=== PATIENT | female | born 1960 | race African-American/Black ===

== ENCOUNTER 2016-03-04 03:01 | Emergency (ER) | payer OTHER ==
[~2016-03-04] VITALS: Ht 163.8 cm; Wt 104.3 kg
[~2016-03-04 03:01] MED LIST: GUAIFENESIN-COD10 ML PO; MEDROL4 M2 PO
--- NOTE | 2016-03-04 03:40 | ED NECK/BACK PAIN COMPLAINT ---
History of Present Illness General Chief Complaint: Low Back Pain/Injury Stated Complaint: S/P FALL TUESDAY AT WORK NOW C/O BACK PAIN Source: patient Exam Limitations: no limitations Vital Signs & Intake/Output Vital Signs & Intake/Output Vital Signs Date Time Temp Pulse Resp B/P Pulse O2 O2 Flow FiO2 Ox Delivery Rate 03/04 626 97.2 75 18 146/82 98 Room Air 03/04 0406 97.0 72 20 166/85 97 Room Air 03/04 0348 Room Air Allergies Coded Allergies: Sulfa (Sulfonamide Antibiotics) (ANAPHYLAXIS 03/04/16) Reconcile Medications Amlodipine Besylate 5 MG TABLET 1 TAB PO DAILY HTN (Reported) Ibuprofen 600 MG TABLET 1 TAB PO TID PRN pain with food Metformin HCl 500 MG TABLET 1 TAB PO BID DIABETES (Reported) REPORTS ONLY TAKE ONCE DAILY EVEN THOUGH SUPPOSED TO TAKE BID D/T MIGRAINES Potassium Chloride (Klor-Con 10) 10 MEQ TABLET.ER 1 TAB PO POTASSIUM ( Reported) Triamterene/Hydrochlorothiazid (Triamterene-Hctz 37.5-25 MG Tb) 37.5 MG-25 MG TABLET 1 TAB PO DAILY HTN (Reported) Triage Nurses Notes Reviewed? yes Onset: Abrupt Duration: day(s): Timing: recent history Quality/Severity: moderate Location: T-spine Radiation: none Context: fall/near fall Method of Injury: fall Loss of Consciousness: no loss of consciousness Modifying Factors: movement Associated Symptoms: muscle spasm HPI: 55 yo woman h/o diabetes, presents with mid thoracic back pain after a fall 3 days ago. 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 I fell... It still hurts... " She notes no head injury. No LOC. She is otherwise well, but notes pain with movement. No numbness/tingling/weakness/bowel/bladder issues. Past History Medical History Any Pertinent Medical History? see below for history EENT: sinusitis Cardiovascular: hypertension Endocrine: diabetes Surgical History Surgical History: non-contributory Psychosocial History What is your primary language Indonesian Family History Hx Contributory? No Review of Systems Review of Systems Constitutional: Reports: no symptoms. Eyes: Reports: no symptoms. Ears, Nose, Throat, Mouth: Reports: no symptoms. Respiratory: Reports: no symptoms. Cardiovascular: Reports: no symptoms. Gastrointestinal/Abdominal: Reports: no symptoms. Musculoskeletal: Reports: no symptoms. Skin: Reports: no symptoms. Neurological/Psychological: Reports: no symptoms. All Other Systems: Reviewed and Negative Physical Exam Physical Exam General Appearance: well developed/nourished, mild distress Head: atraumatic Eyes: Bilateral: normal appearance. Ears, Nose, Throat, Mouth: hearing grossly normal Neck: normal inspection, supple, full range of motion Respiratory: normal breath sounds Cardiovascular: regular rate/rhythm Gastrointestinal: soft, non-tender Back: normal inspection, muscle spasm, no vertebral tenderness, mild paravertebral muscle spasm, no focal bony tenderness to palpation. Extremities: normal range of motion Neurologic/Psych: awake, alert, oriented x 3, normal mood/affect Skin: intact, normal color, warm/dry Comments: light touch, strength DTR's and symmetrical and intact. Progress Differential Diagnosis: myofascial strain, sciatica, T/L spine injury Plan of Care: Orders Procedure Date/time Status XRY-THORACOLUMBAR SPINE 03/04 355 Active Diagnostic Imaging: Viewed by Me: Radiology Read. Discussed w/RAD: Radiology Read. Radiology Impression: thoraco-lumbar xray... no acute fx. pt with djd Comments: PATIENT: KRYSTINA PARTIDA PRESENT AGE: 55 PATIENT ACCOUNT NO: [id number] : 60 LOCATION: [facility] ORDERING PHYSICIAN: LILLIANA OSBORN MD SERVICE DATE: 03/04/16 EXAM TYPE: RAD - XRY-THORACOLUMBAR SPINE EXAMINATION: XR THORACOLUMBAR SPINE CLINICAL INFORMATION: Pain after fall COMPARISON: None. TECHNIQUE: 2 views of the mid to lower thoracic and upper to mid lumbar spine. FINDINGS: Alignment of the vertebral bodies and posterior elements appears anatomic. Vertebral body heights are maintained. There is suggestion of slight intervertebral disc space narrowing in the thoracic spine with associated endplate osteophyte formation. No acute fracture is seen. IMPRESSION: No acute findings identified. Degenerative changes of the thoracic spine. DICTATED BY: MARS PABON MD DATE/TIME DICTATED:03/04/16525 [employer] OPERATOR:GEN DATE/TIME TRANSCRIBED:03/04/16525 CONFIDENTIAL, DO NOT COPY WITHOUT APPROPRIATE AUTHORIZATION. <Electronically signed in Other Vendor System> SIGNED BY: MARS PABON MD 03/04/16531 Departure Departure Disposition: HOME OR SELF CARE Condition: Stable Clinical Impression Primary Impression: Back pain Secondary Impressions: Muscle spasm Referrals: EDITH SIERRA,SANDRA Porter (PCP/Family) Departure Forms: Customer Survey General Discharge Information Prescriptions: Current Visit Scripts Ibuprofen 1 TAB PO TID PRN pain #30 TAB with food Comments pt well appearing at discharge, able to ambulate without problem.
[2016-03-04] MEDS ORDERED: AMLODIPINE BESYL5 M1 PO (03:42)
[2016-03-04] MEDS ORDERED: TRIAMTERENE-HC1 EAC1 PO (03:42)
[2016-03-04] MEDS ORDERED: METFORMIN HCL500 M3 PO (03:42)
[2016-03-04] MEDS ORDERED: KLOR-CON 1010 ME1 PO (03:42)
[2016-03-04] MEDS ORDERED: IBUPROFEN600 M1 PO (04:28)
--- NOTE | 2016-03-04 05:32 | RADIOLOGY REPORT ---
EXAMINATION: XR THORACOLUMBAR SPINE CLINICAL INFORMATION: Pain after fall COMPARISON: None. TECHNIQUE: 2 views of the mid to lower thoracic and upper to mid lumbar spine. FINDINGS: Alignment of the vertebral bodies and posterior elements appears anatomic. Vertebral body heights are maintained. There is suggestion of slight intervertebral disc space narrowing in the thoracic spine with associated endplate osteophyte formation. No acute fracture is seen. IMPRESSION: No acute findings identified. Degenerative changes of the thoracic spine.
[2016-03-04 06:27] VITALS: BP 146/82
== END 2016-03-04 06:30 ==
LOC: ERH 03:01
DX: M62.830 Muscle spasm of back (principal)
CPT/HCPCS: 72080